=== PATIENT | female | born 1985 | race African-American/Black ===

== ENCOUNTER 2017-04-07 02:54 | Emergency (ER) | payer SELFPAY ==
[2017-04-07 03:01] VITALS: BP 147/96
--- NOTE | 2017-04-07 03:32 | ER Document Report ---
ED General - General Chief Complaint: Allergic Reaction Stated Complaint: POSSIBLE ALLERGIC REACTION Time Seen by Provider: 04/07/17 03:16 Mode of Arrival: Ambulatory Information source: Patient Notes: 31-year-old female presents with complaints of lip swelling and jaw swelling after taking medications. Patient states she took her medication and then the symptoms began. Patient denies any fevers or chills denies any pain denies any sore throat TRAVEL OUTSIDE OF THE [place] IN LAST 30 DAYS: No - HPI Onset: Yesterday Onset/Duration: Sudden Quality of pain: No pain Severity: None Pain Level: Denies Associated symptoms: None Exacerbated by: Denies Relieved by: Denies Similar symptoms previously: No Recently seen / treated by doctor: No Past Medical History - Social History Smoking Status: Never Smoker Cigarette use (# per day): No Chew tobacco use (# tins/day): No Smoking Education Provided: No Family History: Reviewed & Not Pertinent Patient has suicidal ideation: No Patient has homicidal ideation: No Renal/ Medical History: Denies: Hx Peritoneal Dialysis Review of Systems - Review of Systems Notes: REVIEW OF SYSTEMS: CONSTITUTIONAL : Denies fever, chills, or sweats. Denies recent illness. EENT: Lip ulceration swelling jaw swelling CARDIOVASCULAR: Denies chest pain. Denies palpitations or racing or irregular heart beat. Denies ankle edema. RESPIRATORY: Denies cough, cold, or chest congestion. Denies shortness of breath, difficulty breathing, or wheezing. GASTROINTESTINAL: Denies abdominal pain or distention. Denies nausea, vomiting , or diarrhea. Denies blood in vomitus, stools, or per rectum. Denies black, tarry stools. Denies constipation. GENITOURINARY: Denies difficulty urinating, painful urination, burning, frequency, blood in urine, or discharge. FEMALE GENITOURINARY: Denies vaginal bleeding, heavy or abnormal periods, irregular periods. Denies vaginal discharge or odor. MUSCULOSKELETAL: Denies back or neck pain or stiffness. Denies joint pain or swelling. SKIN: Denies rash, lesions or sores. HEMATOLOGIC : Denies easy bruising or bleeding. LYMPHATIC: Denies swollen, enlarged glands. NEUROLOGICAL: Denies confusion or altered mental status. Denies passing out or loss of consciousness. Denies dizziness or lightheadedness. Denies headache. Denies weakness or paralysis or loss of use of either side. Denies problems with gait or speech. Denies sensory loss, numbness, or tingling. Denies seizures. PSYCHIATRIC: Denies anxiety or stress. Denies depression, suicidal ideation, or homicidal ideation. ALL OTHER SYSTEMS REVIEWED AND NEGATIVE. PHYSICAL EXAMINATION: GENERAL: Well-appearing, well-nourished and in no acute distress. HEAD: Atraumatic, normocephalic. EYES: Pupils equal round and reactive to light, extraocular movements intact, conjunctiva are normal. ENT: There is obvious herpetic ulcerations of the lip on the left upper NECK: Normal range of motion, supple without lymphadenopathy, mobile tender mass right jaw LUNGS: Breath sounds clear to auscultation bilaterally and equal. No wheezes rales or rhonchi. HEART: Regular rate and rhythm without murmurs ABDOMEN: Soft, nontender, nondistended abdomen. No guarding, no rebound. No masses appreciated. Female : deferred Musculoskeletal: Normal range of motion, no pitting or edema. No cyanosis. NEUROLOGICAL: Cranial nerves grossly intact. Normal speech, normal gait. Normal sensory, motor exams PSYCH: Normal mood, normal affect. SKIN: Warm, Dry, normal turgor, no rashes or lesions noted. Dictation was performed using [employer] voice recognition software Physical Exam - Vital signs Vitals: Temp Pulse Resp BP Pulse Ox 98.3 F 80 16 147/96 H 99 04/07/17 02:56 04/07/17 02:56 04/07/17 02:56 04/07/17 02:56 04/07/17 02:56 Course - Re-evaluation Re-evalutation: 04/07/17 04:39 Patient's examination is consistent with herpetic ulceration, patient's has a non tender mass to the right jaw. I believe this is adenopathy, since it just started is nontender and I cannot palpate a stone Patient will be started on Valtrex After performing a Medical Screening Examination, I estimate there is LOW risk for CENTRAL CORD SYNDROME, EPIDURAL MASS LESION, SEVERE SPINAL STENOSIS, ARTERIAL DISSECTION, MENINGITIS, or ACUTE CORONARY SYNDROME, thus I consider the discharge disposition reasonable. I have reevaluated this patient multiple times and no significant life threatening changes are noted. The patient and I have discussed the diagnosis and risks, and we agree with discharging home to follow-up on an outpatient basis with the understanding that symptoms and presentations can change. We also discussed returning to the Emergency Department immediately if new or worsening symptoms occur. We have discussed the symptoms which are most concerning (e.g., saddle anesthesia, urinary or bowel incontinence or retention, changing or worsening pain) that necessitate immediate return. - Vital Signs Vital signs: Temp Pulse Resp BP Pulse Ox 98.3 F 80 16 147/96 H 99 04/07/17 02:56 04/07/17 02:56 04/07/17 02:56 04/07/17 02:56 04/07/17 02:56 Discharge - Discharge Clinical Impression: Oral herpes simplex infection, Enlarged lymph node Condition: Stable Disposition: HOME, SELF-CARE Instructions: Herpes Simplex ([facility]) Additional Instructions: Follow up with your physician tomorrow for further care or return to the ED IMMEDIATELY if symptoms worsen or new concerns occur. If you cannot afford to follow up with your primary care physician a list of low cost clinics have been provided at the end of your discharge papers as well. Prescriptions: Valacyclovir HCl [Valacyclovir] 1,000 mg PO BID #20 tablet
== END 2017-04-07 03:39 | disposition home or self-care (01) ==
LOC: ER 02:54
DX: B00.1 Herpesviral vesicular dermatitis (principal); R59.0 Localized enlarged lymph nodes
CPT/HCPCS: 99281

== ENCOUNTER 2018-04-17 02:13 | Emergency (ER) | payer SELFPAY ==
--- NOTE | 2018-04-17 04:22 | ER Document Report ---
ED General - General Chief Complaint: Hand Swelling Stated Complaint: SWOLLEN THUMB Time Seen by Provider: 04/17/18 04:16 Notes: Patient is a 32-year-old female that presents to the emergency department for chief complaint of left thumb pain and swelling. Patient states that she noticed swelling of her thumb yesterday, and it seemingly got worse this morning , particularly with the pain. It is mainly on her interphalangeal joints of her left thumb. The patient is right-handed. It is tender to palpate, and painful to move the joint. She denies any injuries, or abrasions or cuts to her hand or thumb. She is otherwise healthy, denies diabetes. She currently rates the pain as a 4 out of 10 at rest, but it does go up to a 10 out of 10 with pushing on it or moving it. He describes the pain as an aching and occasionally sharp sensation. She denies having any fevers, chills, night sweats, chest pain, shortness of breath, nausea, vomiting or abdominal pain. I discussed with her her diet, and she stated that she has been on "keto" diet for a few months now, containing high-protein intake, Past Medical History: Denies chronic medical conditions Past Surgical History: Denies major surgical history Social History: Admits to smoking cigarettes and rare alcohol use Family History: Reviewed and noncontributory for presenting illness Allergies: Reviewed, see documented allergy list. REVIEW OF SYSTEMS: Unless otherwise stated in this report the patient's positive and negative responses for review of systems for constitutional, eyes, ENT, cardiovascular, respiratory, gastrointestinal, neurological, genitourinary, musculoskeletal, and integumentary systems and related systems to the presenting problem are either as stated in the HPI or were not pertinent or were negative for the symptoms and/or complaints related to the presenting medical problem. PHYSICAL EXAMINATION: Vital signs reviewed, nursing noted reviewed. GENERAL: Well-appearing, well-nourished and in no acute distress. HEAD: Atraumatic, normocephalic. EYES: Eyes appear normal, extraocular movements intact, sclera anicteric, conjunctiva are normal. ENT: nares patent, oropharynx clear without exudates. Moist mucous membranes. NECK: Normal range of motion, supple without lymphadenopathy LUNGS: Breath sounds clear to auscultation bilaterally and equal. No wheezes rales or rhonchi. HEART: Regular rate and rhythm without murmurs ABDOMEN: Soft, nontender, normoactive bowel sounds. No rebound, guarding, or rigidity. No masses appreciated. EXTREMITIES: The left thumb at the interphalangeal joint is swollen, and exquisitely tender to palpate, and mild erythema associated. There is no tenderness over the flexor tendon sheath, no tenderness over the flexor surface proximal or distal to the interphalangeal joint. The rest of the extremity exam is grossly unremarkable, the left wrist, and the rest of her hand is unremarkable. There are no abrasions or breaks in the skin over the thumb. NEUROLOGICAL: No focal neurological deficits. Moves all extremities spontaneously Motor and sensory grossly intact on exam. PSYCH: Normal mood, normal affect. SKIN: Warm, Dry, normal turgor, no rashes or lesions noted on exposed skin TRAVEL OUTSIDE OF THE [place] IN LAST 30 DAYS: No - Related Data Allergies/Adverse Reactions: meperidine [From Demerol] Adverse Reaction (Verified 04/17/18 04:04) VOMITING Past Medical History - Social History Smoking Status: Current Every Day Smoker Chew tobacco use (# tins/day): No Frequency of alcohol use: Social Family History: Reviewed & Not Pertinent Patient has suicidal ideation: No Patient has homicidal ideation: No Renal/ Medical History: Denies: Hx Peritoneal Dialysis Physical Exam - Vital signs Vitals: Temp Pulse Resp BP Pulse Ox 98.8 F 89 20 147/94 H 100 04/17/18 02:21 04/17/18 02:21 04/17/18 02:21 04/17/18 02:21 04/17/18 02:21 Course - Re-evaluation Re-evalutation: Patient was seen and examined, vital signs reviewed, patient's clinical history given diet changes, specifically to a high-protein diet, and her examination seem most consistent with acute gouty flare, x-ray obtained and negative. Iverson treated with IM Toradol, discussed with her the treatments for gout, and that first-line as NSAIDs, the patient agrees with this plan of care, advised that she could purchase a thumb spica splint to help with pain as it does resolve, and also advised that if her symptoms worsen or do not improve on this therapy, that she may need second line therapies and that she should return to the emergency department. Finger X-Ray 04/17/18 04:33 IMPRESSION: 1. No acute fracture or dislocation. 2. Soft tissue swelling without retained opaque foreign bodies. - Vital Signs Vital signs: Temp Pulse Resp BP Pulse Ox 97.9 F 71 12 149/98 H 100 04/17/18 06:06 04/17/18 06:06 04/17/18 06:06 04/17/18 06:06 04/17/18 06:06 Discharge - Discharge Clinical Impression: Gout flare Qualifiers: Gout site: unspecified site Gout etiology: unspecified cause Qualified Code(s) : M10.9 - Gout, unspecified Condition: Stable Disposition: HOME, SELF-CARE Instructions: Gout ([facility]) Additional Instructions: If the pain is not improving over the next several days, do not hesitate to return to the emergency department to have this reevaluated otherwise follow-up with her primary care physician. Take medication as directed. Prescriptions: Naproxen 500 mg PO BID #30 tablet Referrals: DAVID ROQUE MD [[facility] STAFF] - Follow up in 3-5 days (or your primary care.)
[2018-04-17] MEDS ORDERED: KETOROLAC TROMETHAMINE 60 MG/2 ML SDV IM ONE (04:33)
--- NOTE | 2018-04-17 05:17 | RADIOLOGY REPORT (SQ) ---
EXAM DESCRIPTION: 3 views of the left first digit CLINICAL HISTORY: 32 years, Female, left thumb swelling COMPARISON: None. FINDINGS: There is no acute fracture or dislocation. The bony alignment is normal. There is diffuse soft tissue swelling. There are no retained opaque foreign bodies. The distal radius/ ulna, carpal, metacarpal, and phalangeal bones are normal in appearance. The intercarpal, carpometacarpal, metacarpophalangeal, and interphalangeal joints are normal in appearance. IMPRESSION: 1. No acute fracture or dislocation. 2. Soft tissue swelling without retained opaque foreign bodies.
[2018-04-17 06:08] VITALS: BP 149/98
== END 2018-04-17 06:10 | disposition home or self-care (01) ==
LOC: ER 02:13
DX: M10.9 Gout, unspecified (principal); M79.89 Other specified soft tissue disorders; M79.645 Pain in left finger(s); F17.200 Nicotine dependence, unspecified, uncomplicated
CPT/HCPCS: 99283; 96372; 73140; J1885